=== PATIENT | male | born 2005 | race Two or more races ===

== ENCOUNTER 2024-11-15 17:02 | Emergency (ER) | payer MEDICAID, SELFPAY ==
[2024-11-15 17:04] VITALS: BMI 23.6
[2024-11-15 17:53] VITALS: BP 154/71; PULSE 94; RESP 20; TEMP 36.9; O2SAT 99
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
[2024-11-15] MEDS: DIPHTH,PERTUSS(ACELL),TET VAC 0.5 ML VIAL IMi (18:20)
[2024-11-15] MEDS: LIDOCAINE HCL 1% 20 ML VIAL 10 ML INFL (18:28)
== END 2024-11-15 19:56 | disposition home or self-care (01) ==
LOC: SERX 19:09
PROVIDERS: Emergency Provider Emergency Medicine
DX: S81.812A Laceration without foreign body, left lower leg, initial encounter (principal); V28.09XA Other motorcycle driver injured in noncollision transport accident in nontraffic accident, initial encounter; Z23 Encounter for immunization
CPT/HCPCS: 12002; 90471; 90715; 99283; J3490